=== PATIENT | male | born 1995 | race Caucasian/White ===

== ENCOUNTER 2023-07-19 10:00 | Emergency (ER) | payer OTHER, BC, SELFPAY ==
[2023-07-19 10:04] VITALS: BP 146/92; PULSE 84; RESP 20; TEMP 36.8; O2SAT 96; BMI 37.6
--- NOTE | 2023-07-19 10:22 | CRLHL7_ITS ---
For Patients: As a result of the Century Cures Act, medical imaging exams and procedure reports are released immediately into your electronic medical record. You may view this report before your referring provider. If you have questions, please contact your health care provider. INDICATION: Trauma, left lower back pain.. TECHNIQUE: CT abdomen and pelvis acquired with 128 cc Isovue 370 IV contrast. COMPARISON: None available. FINDINGS: Lower chest: Perifissural nodule along the right major fissure, likely a lymph node. The heart is normal in size. No pericardial effusion. Liver: Diffuse hepatic steatosis. No suspicious masses are identified. Gallbladder and bile ducts: Unremarkable. No stones or inflammation. No biliary dilatation. Pancreas: Unremarkable. No mass or inflammation. Spleen: Unremarkable. Normal in size. No masses. Adrenal glands: Unremarkable. No nodules. Kidneys: Unremarkable. No suspicious masses, obstructing stones, or hydronephrosis. GI tract: Unremarkable. Normal in caliber. No sign of mass or inflammation. Normal appendix. Vasculature: Abdominal aorta is normal in caliber. Mesenteric arteries are patent. Lymph nodes: No lymphadenopathy. Peritoneum/Abdominal Wall: No free air or free fluid. No abdominal wall fluid collection to suggest hematoma. Pelvis: Unremarkable. Bones: No acute fracture. Mild multilevel degenerative disc disease. IMPRESSION: 1. No acute traumatic abnormality identified. 2. Hepatic steatosis. Please note that all CT scans at this facility use dose modulation, iterative reconstruction, and/or weight-based dosing when appropriate to reduce radiation dose to as low as reasonably achievable. Dictated by Noreen Rivera MD @ 07/19/2023 11:45:23 AM (Electronically Signed)
[2023-07-19 10:40] VITALS: RESP 18
[2023-07-19 10:45] LABS: Basophils Absolute Auto 0.01 K/uL (0.00-0.30); Basophils Percent Auto 0.1 % (0.0-3.0); Eosinophils Absolute Auto 0.06 K/uL (0.00-0.50); Eosinophils Percent Auto 0.7 % (0.0-7.0); Hematocrit 47.5 % (37.0-53.0); Hemoglobin* 16.3 gm/dL (13.5-17.5); Immature Granulocytes Abs Auto 0.03 K/uL (0.00-0.30); Immature Granulocytes Pct Auto 0.3 %; Lymphocytes Absolute Auto 2.64 K/uL (0.90-2.90); Lymphocytes Percent Auto 29.7 % (20-44); Mean Corpuscular HGB Conc 34 gm/dL (32-36); Mean Corpuscular Hemoglobin 31 pg (26-34); Mean Corpuscular Volume 90 fL (80-100); Monocytes Percent Auto 7.3 % (0.0-11.0); Neutrophils Percent Auto 61.9 % (42.0-72.0); Platelet Count* 304 K/uL (140-440); RDW Coefficient of Variation % 11.9 % (11.5-15.5); Red Blood Count 5.31 m/uL (4.30-5.90); White Blood Count* 8.89 K/uL (4.50-11.00)
[2023-07-19 10:53] LABS: Slide Review Reflex No
[2023-07-19 10:55] LABS: Chloride* 107 mmol/L (96-114); Potassium* 3.8 mmol/L (3.6-5.1); Sodium* 142 mmol/L (135-149)
[2023-07-19 10:58] LABS: Alanine Aminotransferase* 37 U/L (4-50); Alkaline Phosphatase* 96 U/L (40-150); Anion Gap 12 mEq/L (7-15); Aspartate Amino Transferase* 44 U/L (12-35); Bilirubin Total* 0.6 mg/dL (0.1-1.5); Blood Urea Nitrogen* 17 mg/dL (5-24); Calcium* 9.1 mg/dL (8.4-10.6); Carbon Dioxide* 23 mmol/L (20-32); Creatinine* 0.9 mg/dL (0.5-1.5); Est. Creatinine Clearance* 123.92; Estimated Glomerular Filt Rate 118 ml/min; Glucose* 89 mg/dL (60-115); Total Protein* 8.4 g/dL (6.0-8.3)
--- NOTE | 2023-07-19 11:55 | ED_ITS ---
HPI - General Adult General Date Seen: 07/19/23 Chief complaint: Unspecified Complaint, Adult Stated complaint: Fell, L side/knee pain Time Seen by Provider: 07/19/23 10:02 Source: patient Mode of arrival: ambulatory Limitations: no limitations History of Present Illness HPI narrative: Patient is a 28 year old male presenting to emergency department for left flank pain and left knee pain. Patient states 2 days ago while he was at work he slipped and hit his back against the sink in hurt his left knee. He has been ambulating fine since then but knows the pain was worse today. Most was pain is in his left flank he has not noticed any bruising moves concerned a could be internal injuries. Denies dysuria, hematuria, diarrhea, constipation, abdominal pain, nausea vomiting, fevers, chills, weakness, numbness. He is not on any blood thinners and has no other medical issues. No other concerns noted Related Data Home Medications Medication Instructions Recorded Confirmed Imitrex 07/19/23 Topamax 07/19/23 bupropion HCl 07/19/23 fluoxetine 07/19/23 pantoprazole 07/19/23 Allergies Allergy/AdvReac Type Severity Reaction Status Date / Time No Known Drug Allergies Allergy Verified 07/19/23 11:14 Review of Systems 2 Status of ROS: Reports: 10 or more systems reviewed and unremarkable except as noted in History and below Exam Narrative: Exam Narrative: Const: Well-nourished, Well-developed, in mild distress Eyes: PERRL, no conjunctival injection, and symmetrical lids HENT: Atraumatic external nose and ears. Moist mucous membranes. Neck: Symmetric, trachea midline, No thyromegaly. CVS: RRR, No murmurs or gallops. Peripheral pulses 2+ and equal in all extremities RESP: Unlabored respiratory effort. Clear to auscultation bilaterally. GI: Nontender/Nondistended, No rebound or guarding. MSK:Extremities w/o deformity, Normal Active ROM, left lumbar paraspinal tenderness Skin: Warm, Dry. No rashes or lesions. Neuro: Normal Muscle tone, No focal neurological deficits. Psych: Awake, Alert, & Oriented x3. Appropriate mood and affect. Const: Vital Signs, click to edit/add: Vital Signs - 24 hr 07/19/23 10:04 07/19/23 10:40 Temperature 98.3 F Pulse Rate [Pulse Oximeter] 84 Respiratory Rate 20 Respiratory Rate [ Generalized] 18 Blood Pressure [Ri ght Upper Arm] 146/92 H Pulse Oximetry 96 Oxygen Delivery Me thod Room Air Course Vital Signs Vital signs: Initial Vital Signs Temperature 98.3 F 07/19/23 10:04 Temperature Source Temporal Artery Scan 07/19/23 10:04 Pulse Rate 84 07/19/23 10:04 Respiratory Rate 20 07/19/23 10:04 Blood Pressure 146/92 H 07/19/23 10:04 Blood Pressure Mean 110 H 07/19/23 10:04 Blood Pressure Position Sitting 07/19/23 10:04 Pulse Oximetry 96 07/19/23 10:04 Oxygen Delivery Method Room Air 07/19/23 10:04 Vital Signs Temperature 98.3 F 07/19/23 10:04 Pulse Rate 84 07/19/23 10:04 Respiratory Rate 20 07/19/23 10:04 Blood Pressure 146/92 H 07/19/23 10:04 Pulse Oximetry 96 07/19/23 10:04 Oxygen Delivery Method Room Air 07/19/23 10:04 Temperature 98.3 F 07/19/23 10:04 Pulse Rate 84 07/19/23 10:04 Respiratory Rate 18 07/19/23 10:40 Blood Pressure 146/92 H 07/19/23 10:04 Pulse Oximetry 96 07/19/23 10:04 Oxygen Delivery Method Room Air 07/19/23 10:04 Medical Decision Making [facility] Narrative Medical decision making narrative: Patient is a 28-year-old male presenting for left flank pain and left knee pain. Than left knee pain is relatively minor and he is ambulating well. Very unlikely there any fractures and imaging is not warranted. He is not requesting any pain medication at this time. We will do a CBC and CMP. Lab work all returned showing no concerning abnormalities. I did order a CT scan to check for any signs of internal hemorrhage versus. While there is very low risk considering has apparent and vital signs is not out around possibility that he could have cause the damage from hitting the edge of the sink. The CT returned showing no concerning abnormalities. He is otherwise doing well and can be discharged home. He is agreeable with this plan Lab Data Labs: Lab Results 07/19/23 Range/Units 10:33 WBC 8.89 (4.50-11.00) K/uL RBC 5.31 (4.30-5.90) m/uL Hgb 16.3 (13.5-17.5) gm/dL Hct 47.5 (37.0-53.0) % MCV 90 (80-100) fL MCH 31 (26-34) pg MCHC 34 (32-36) gm/dL RDW Coeff of Isabel 11.9 (11.5-15.5) % Plt Count 304 (140-440) K/uL Neut % (Auto) 61.9 (42.0-72.0) % Lymph % (Auto) 29.7 (20-44) % [place] % (Auto) 7.3 (0.0-11.0) % Eos % (Auto) 0.7 (0.0-7.0) % Baso % (Auto) 0.1 (0.0-3.0) % Neut # (Auto) 5.50 (1.7-7.0) K/uL Lymph # (Auto) 2.64 (0.90-2.90) K/uL [place] # (Auto) 0.60 (0.00-0.90) K/UL Eos # (Auto) 0.06 (0.00-0.50) K/uL Baso # (Auto) 0.01 (0.00-0.30) K/uL Abs Immat Gran (auto) 0.03 (0.00-0.30) K/uL Imm/Tot Granulo (auto) 0.3 % Sodium 142 (135-149) mmol/L Potassium 3.8 (3.6-5.1) mmol/L Chloride 107 (96-114) mmol/L Carbon Dioxide 23 (20-32) mmol/L Anion Gap 12 (7-15) mEq/L BUN 17 (5-24) mg/dL Creatinine 0.9 (0.5-1.5) mg/dL Estimated Creat Clear 123.92 Estimated GFR 118 ml/min Glucose 89 (60-115) mg/dL Calcium 9.1 (8.4-10.6) mg/dL Total Bilirubin 0.6 (0.1-1.5) mg/dL AST 44 H (12-35) U/L ALT 37 (4-50) U/L Alkaline Phosphatase 96 (40-150) U/L Total Protein 8.4 H (6.0-8.3) g/dL Albumin 5.0 (3.3-5.0) g/dL Imaging Data CT scan abdomen and pelvis: Radiologist's impression: 1. No acute traumatic abnormality identified. 2. Hepatic steatosis. Please note that all CT scans at this facility use dose modulation, iterative reconstruction, and/or weight-based dosing when appropriate to reduce radiation dose to as low as reasonably achievable. Dictated by Noreen Rivera MD @ 07/19/2023 11:45:23 AM Discharge Plan Discharge Clinical Impression: Muscle strain Patient Disposition: Home, Self-Care Condition: Stable Instructions: Muscle Strain (ED) Additional Instructions: Return to the emergency department for new or worsening symptoms. Follow-up with your primary care provider if symptoms are persisting. Take Tylenol and ibuprofen for pain Prescriptions: No Action fluoxetine bupropion HCl Topamax Imitrex pantoprazole Follow Up/Referrals: Provider,Not a Local [Primary Care Provider] - Stand Alone Forms: [employer] Info Instructions
== END 2023-07-19 12:05 | disposition home or self-care (01) ==
PROVIDERS: Emergency Provider Student in an Organized Health Care Education/Training Program
DX: S39.011A Strain of muscle, fascia and tendon of abdomen, initial encounter (principal)
CPT/HCPCS: 36415; 74177; 80053; 85025; 99283; 99284; 99285; Q9967